=== PATIENT | female | born 1965 | race African-American/Black ===

== ENCOUNTER 2024-07-17 17:55 | Emergency (ER) | payer BC, SELFPAY ==
--- NOTE | ~2024-07-17 | CT_ITS ---
EXAMINATION: CT abdomen pelvis w con DATE: 07/17/2024 23:17 INDICATION: Abdominal pain TECHNIQUE: Computed tomography (CT) of the abdomen and pelvis was performed with 100 mL Omnipaque-350 intravenous contrast. Automated exposure control and iterative reconstruction technique were employe d. The dose-length product was 571.76 mGy-cm. COMPARISON: None. FINDINGS: Lower thorax: Unremarkable Liver: Normal. Biliary/Gallbladder: Gallbladder is normal. No bile duct dilation. Pancreas: No mass or duct dilation. Spleen: Normal. Adrenals:No mass. Kidneys: No suspicious mass, obstructing stone, or hydronephrosis. Multiple punctate nonobstructing r ight renal calcifications. Subcentimeter right lower pole hypodensity, too small to characterize but most likely represents a cyst. GI tract: Mild distal esophageal and gastric wall edema. No small or large bowel dilation. Normal ashlee endix. Mesentery/Peritoneum: No ascites, mass, or free air. Mild mesenteric edema. Trace mesenteric fluid. Retroperitoneum: No mass. Pelvis: Normal urinary bladder. Absent uterus. Normal bilateral ovaries. Small volume fluid in the de ep pelvis. Soft Tissues: Soft tissues and body wall unremarkable. Bones: No acute osseous finding. IMPRESSION: Mild esophagitis/gastritis. Mild mesenteric edema and trace ascites. Reviewed, dictated and finalized at location [facility] [employer]
[2024-07-17 17:59] VITALS: BP 152/108; PULSE 95; RESP 16; TEMP 36.6; O2SAT 100
--- NOTE | 2024-07-17 22:26 | PC.NURSE ---
pt unable to urinate at this time. while assessing pt they state that they urinated in the waiting room but didn't have a UA cup to provide a sample in. provided pt call light bedside and educated pt to notify staff with any urge to provide a sample.
[2024-07-17 22:34] LABS: Basophils Percent Auto 0.2 % (0.2-1.2); Eosinophils Percent Auto 0.2 % (0-4.4); Hematocrit 39.1 % (37.0-47.0); Hemoglobin 12.8 g/dL (12.0-15.0); Immature Granulocyte Absolute 0.05 K/mm3 (0.00-0.031); Immature Granulocyte Percent A 0.4 % (0-0.5); Lymphocytes Absolute Auto 0.87 K/mm3 (0.9-3.2); Lymphocytes Percent Auto 6.2 % (18.3-44.2); Mean Corpuscular HGB Conc 32.7 g/dl (32-36); Mean Corpuscular Hemoglobin 28.1 pg (26-34); Mean Corpuscular Volume 85.9 fl (80-100); Mean Platelet Volume 10.2 fl (7.4-10.4); Monocytes Absolute Auto 1.1 K/mm3 (0.1-0.6); Monocytes Percent Auto 7.9 % (2.6-8.5); Neutrophils Percent Auto 85.1 % (45.5-73.1); Platelet Count Result 290 k/mm3 (150-375); Red Blood Count 4.55 M/mm3 (4.2-5.4); Red Cell Distribution Width 16.8 % (11.5-14.5); White Blood Count 14.1 K/mm3 (4.5-10.0)
[2024-07-17] MEDS: SODIUM CHLORIDE 0.9% IV 1,000 ML 999 ML IV CONT (22:39)
--- NOTE | 2024-07-17 22:44 | PC.NURSE ---
pt pain 6/10 but would like to decline IV morphine because they state the pain is tolerable. they would prefer to wait on results to request PO Tylenol. hx of total hysterectomy and CT notified.
[2024-07-17 22:51] LABS: Alanine Aminotransferase 24 U/L (6-35); Albumin Level 4.8 g/dL (3.5-5.1); Alkaline Phosphatase 106 U/L (38-126); Anion Gap 9 mmol/L (4-12); Aspartate Amino Transferase 27 U/L (14-36); Bilirubin,Total 0.6 mg/dL (0.2-1.3); Blood Urea Nitrogen 18 mg/dL (7-17); Calcium 9.8 mg/dL (8.4-10.2); Carbon Dioxide 26 mmol/L (22-30); Chloride 102 mmol/L (98-107); Estimated CRCL calculation 85 ml/min; Estimated Glomerular Filt Rate > 60; Glucose 184 mg/dL (65-110); Potassium 4.3 mmol/L (3.4-5.0); Sodium 137 mmol/L (137-145)
[2024-07-17 23:27] VITALS: BP 161/77; PULSE 97; RESP 16; TEMP 36.7; O2SAT 97
[2024-07-17 23:58] LABS: Add Urine Microscopic? NO; Appearance Urine Clear (Clear); Bilirubin Urine Negative (Negative); Blood Urine Negative (Negative); Color Urine Yellow (Yellow); Glucose Urine UA Negative (Negative); Ketones Urine Negative (Negative); Leukocyte Esterase Ur Negative LEU/UL (Negative); Nitrate Urine Negative (Negative); Protein Urine Negative (Negative); Specific Grav Ur 1.033 (1.001-1.035); Urobilinogen Urine 0.2 mg/dL (<2.0)
--- NOTE | 2024-07-18 01:04 | ED_ITS ---
HPI - General Adult General Chief complaint: Abdominal Pain Stated complaint: abdominal pain Time Seen by Provider: 07/17/24 22:25 History of Present Illness HPI narrative: Patient is a 58-year-old female who presents emergency department chief complaint of abdominal pain. Patient reports the pain radiates to her back reports that she has had prior kidney stones in the past patient reports the pain is sharp reports not improved by anything. Related Data Allergies Allergy/AdvReac Type Severity Reaction Status Date / Time oxycodone Allergy Vomiting Verified 07/17/24 22:42 Review of Systems Review of Systems: A 10 system review of systems was completed on the patient and is negative except for what is stated in the HPI. Nursing and ancillary documentation was reviewed. Exam Narrative: GENERAL: Well-appearing, well-nourished, and in no acute distress. HEAD: Normocephalic, atraumatic. EYES: PERRLA and EOMI. ENT: Nares clear, no rhinorrhea or epistaxis. Mucous membranes moist. NECK: Supple. CHEST: Clear to auscultation. No respiratory distress. HEART: Regular rate and rhythm. No murmur heard. Normal peripheral pulses. ABDOMEN: Soft, diffuse mild tenderness, nondistended, normal active bowel sounds. EXTREMITIES: Normal range of motion. No edema. SKIN: Warm, dry, no rash. NEURO: No focal deficits. Alert and oriented x3. PSYCH: Normal mood and affect. Course Vital Signs Vital signs: Vital Signs Temperature 36.6 C 07/17/24 17:59 Pulse Rate 95 07/17/24 17:59 Respiratory Rate 16 07/17/24 17:59 Blood Pressure 152/108 H 07/17/24 17:59 Pulse Oximetry 100 07/17/24 17:59 Temperature 36.7 C 07/17/24 23:27 Pulse Rate 97 07/17/24 23:27 Respiratory Rate 16 07/17/24 23:27 Blood Pressure 161/77 H 07/17/24 23:27 Pulse Oximetry 97 07/17/24 23:27 Medical Decision Making [facility] Narrative Medical decision making narrative: Differential diagnosis includes intra-abdominal infection, ureterolithiasis, pyelonephritis, UTI, colitis, diverticulitis, ulcerative colitis flare Laboratory studies were obtained on the patient showed white count of 14.1 electrolytes were within normal limits liver enzymes were normal urinalysis showed no evidence UTI CT scan of the abdomen pelvis showed Mild esophagitis/gastritis. Mild mesenteric edema and trace ascites. The patient be discharged home to follow-up with a primary care provider Vital Signs Vital Signs: Vital Signs Temperature 36.6 C 07/17/24 17:59 Pulse Rate 95 07/17/24 17:59 Respiratory Rate 16 07/17/24 17:59 Blood Pressure 152/108 H 07/17/24 17:59 Pulse Oximetry 100 07/17/24 17:59 Temperature 36.7 C 07/17/24 23:27 Pulse Rate 97 07/17/24 23:27 Respiratory Rate 16 07/17/24 23:27 Blood Pressure 161/77 H 07/17/24 23:27 Pulse Oximetry 97 07/17/24 23:27 Lab Data 07/17/24 22:23 07/17/24 22:23 Labs: Lab Results 07/17/24 07/17/24 Range/Units 22:23 23:44 WBC 14.1 H (4.5-10.0) K/mm3 RBC 4.55 (4.2-5.4) M/mm3 Hgb 12.8 (12.0-15.0) g/dL Hct 39.1 (37.0-47.0) % MCV 85.9 (80-100) fl MCH 28.1 (26-34) pg MCHC 32.7 (32-36) g/dl RDW 16.8 H (11.5-14.5) % Plt Count 290 (150-375) k/mm3 MPV 10.2 (7.4-10.4) fl Immature Gran % (Auto) 0.4 (0-0.5) % Neut % (Auto) 85.1 H (45.5-73.1) % Lymph % (Auto) 6.2 L (18.3-44.2) % [place] % (Auto) 7.9 (2.6-8.5) % Eos % (Auto) 0.2 (0-4.4) % Baso % (Auto) 0.2 (0.2-1.2) % Lymph # (Auto) 0.87 L (0.9-3.2) K/mm3 [place] # (Auto) 1.1 H (0.1-0.6) K/mm3 Eos # (Auto) 0.0 (0-0.3) K/mm3 Baso # (Auto) 0.0 (0.0-0.1) K/mm3 Abs Immat Gran (auto) 0.05 H (0.00-0.031) K/mm3 Absolute Neuts (auto) 12.0 H (1.3-6.7) K/mm3 Absolute Nucleated RBC 0.000 (0.0-0.012) K/mm3 Nucleated RBC % 0.0 (0.0-0.2) % Sodium 137 (137-145) mmol/L Potassium 4.3 (3.4-5.0) mmol/L Chloride 102 (98-107) mmol/L Carbon Dioxide 26 (22-30) mmol/L Anion Gap 9 (4-12) mmol/L BUN 18 H (7-17) mg/dL Creatinine 0.60 L (0.7-1.0) mg/dL Estim Creat Clear Calc 85 ml/min Estimated GFR > 60 (59 - ) Glucose 184 H (65-110) mg/dL Calcium 9.8 (8.4-10.2) mg/dL Total Bilirubin 0.6 (0.2-1.3) mg/dL AST 27 (14-36) U/L ALT 24 (6-35) U/L Alkaline Phosphatase 106 (38-126) U/L Total Protein 8.0 (6.3-8.2) g/dL Albumin 4.8 (3.5-5.1) g/dL Urine Color Yellow (Yellow) Urine Appearance Clear (Clear) Urine pH 6.0 (5.0-9.0) Ur Specific [place] 1.033 (1.001-1.035) Urine Protein Negative (Negative) mg/dL Urine Glucose (UA) Negative (Negative) mg/dL Urine Ketones Negative (Negative) mg/dL Ur Blood (Man) Negative (Negative) Urine Nitrate Negative (Negative) Urine Bilirubin Negative (Negative) Urine Urobilinogen 0.2 (<2.0) mg/dL Leukocyte Esterase Rfl Negative (Negative) PETER/UL Discharge Plan Discharge Clinical Impression: Abdominal pain Patient Disposition: Home, Self-Care Condition: Stable Instructions: Antibiotic Form, Abdominal Pain (ED) Prescriptions: New dicyclomine 20 mg tablet 20 mg PO QID PRN (Reason: abdominal discomfort) Qty: 20 0RF ondansetron 4 mg tablet,disintegrating 4 mg PO Q8H PRN (Reason: nausea and vomiting) Qty: 10 0RF Follow-up/Referrals: UNKNOWN,DOCTOR [Primary Care Provider] - Мария Hughes DO [Physician] - Time of Disposition: 01:07
[2024-07-18] MEDS: ACETAMINOPHEN 500 MG TABLET 1000 MG PO (01:22)
== END 2024-07-18 01:27 | disposition home or self-care (01) ==
PROVIDERS: Physician Assistant; Emergency Provider Emergency Medicine
DX: R10.9 Unspecified abdominal pain (principal); K20.90 Esophagitis, unspecified without bleeding; K29.70 Gastritis, unspecified, without bleeding
CPT/HCPCS: 36415; 74177; 80053; 81003; 85025; 96360; 99284; A9270; J7030; Q9967